=== PATIENT | female | born 1945 | race Caucasian/White ===

== ENCOUNTER 2016-08-16 21:59 | Inpatient (IN) | payer MEDICARE, OTHER ==
[~2016-08-16] VITALS: Ht 165.1 cm; Wt 56.0 kg
[2016-08-16] MEDS ORDERED: IPRATROPIUM BROMIDE 0.5 MG/2.5 ML NEB SOLUTION NEB ONE (22:15)
[2016-08-16] MEDS ORDERED: ALBUTEROL SULFATE 5 MG/ML 20 ML NEB SOLN [BULK] NEB ONE (22:15)
[2016-08-16] MEDS ORDERED: 0.9% SODIUM CHLORIDE 5 ML NEB SOLUTION NEB ONE (22:19)
[2016-08-16] MEDS ORDERED: LEVO50TA11 PO (22:21)
[2016-08-16] MEDS ORDERED: MIRT15TA6 PO (22:21)
[2016-08-16] MEDS ORDERED: OMEP10CA41 PO (22:21)
[2016-08-16] MEDS ORDERED: AMIO200T2 PO (22:21)
[2016-08-16] MEDS ORDERED: METF850T2 PO (22:21)
[2016-08-16] MEDS ORDERED: TRAM50TA4 PO (22:21)
[2016-08-16] MEDS ORDERED: DOCU250C91 PO (22:21)
[2016-08-16] MEDS ORDERED: ASCO500T24 PO (22:21)
[2016-08-16] MEDS ORDERED: VITAD1000 PO (22:21)
[2016-08-16] MEDS ORDERED: ENOX60DI8 SQ (22:21)
[2016-08-16] MEDS ORDERED: LACT1TAB11 PO (22:21)
[2016-08-16] MEDS ORDERED: POTA-9 PO (22:21)
[2016-08-16] MEDS ORDERED: PRAV40TA3 PO (22:21)
[2016-08-16] MEDS ORDERED: GABA-529 PO (22:21)
[2016-08-16] MEDS ORDERED: LEVO250T58 PO (22:21)
[2016-08-16 22:22] LABS: GLUCOSE,POINT OF CARE 166 MG/DL (70-110)
[2016-08-16 22:38] LABS: BASOPHILS % (AUTO) 0.1 % (0.0-2.0); EOSINOPHILS % (AUTO) 0 % (1.0-6.0); HEMATOCRIT 30.4 % (36-46); HEMOGLOBIN 8.9 g/dL (12.0-16.0); LYMPHOCYTES # (AUTO) 0.9 K/uL (1.0-4.8); LYMPHOCYTES % (AUTO) 4.1 % (22.0-44.0); MEAN CORPUSCULAR HEMOGLOBIN 22.1 pg (26.0-34.0); MEAN CORPUSCULAR HGB CONC 29.2 G/dL (31.0-37.0); MEAN CORPUSCULAR VOLUME 76 fL (80-100); MONOCYTES # (AUTO) 1.2 K/uL (0.1-1.0); MONOCYTES % (AUTO) 5.5 % (2.0-9.0); NEUTROPHILS # (AUTO) 20.5 K/uL (1.8-7.7); PLATELET COUNT (AUTO) 556 K/uL (150-450); RED BLOOD CELL COUNT(AUTO) 4.02 MIL/uL (4.00-5.20); RED CELL DISTRIBUTION WIDTH 23.1 % (11.5-14.5); WHITE BLOOD COUNT (AUTO) 22.7 K/uL (4.5-11.0)
[2016-08-16 22:42] LABS: ANION GAP 5 mmol/L (8-16); CALCIUM, TOTAL 8.1 mg/dL (8.8-10.5); CARBON DIOXIDE 32 mmol/L (22-29); CHLORIDE 101 mmol/L (98-107); CREATININE 0.79 mg/dL (0.60-1.30); GLOMERULAR FILTR. RATE CALC > 60 mL/min (>60); POTASSIUM 5.3 mmol/L (3.5-5.1); SODIUM SERUM 138 mmol/L (136-145); UREA NITROGEN, BLOOD 24 mg/dL (7-18)
[2016-08-16 22:44] LABS: INR 1.2 (0.9-1.1); PROTHROMBIN TIME 12.8 SEC (9.4-11.6)
[2016-08-16 22:45] LABS: NEUTROPHILS % (AUTO) 90.3 % (40.0-70.0)
[2016-08-16 23:05] LABS: B-TYPE NATRIURETIC PEPTIDE 571 pg/mL (0-100)
[2016-08-16 23:07] LABS: ALANINE AMINOTRANSFERASE 11 U/L (12-78); ALBUMIN 1.4 g/dL (3.4-5.0); ASPARTATE AMINOTRANSFERASE 29 U/L (15-37); BILIRUBIN,TOTAL 0.4 mg/dL (0.1-1.0); CREATINE KINASE MB 1.4 ng/mL (0-5); CREATINE KINASE, TOTAL 80 U/L (26-192); TOTAL PROTEIN, SERUM 6.8 g/dL (6.4-8.2)
[2016-08-16 23:20] LABS: RBC MORPHOLOGY COMMENT ABNORMAL RBC MORPH
[2016-08-17] MEDS ORDERED: 0.9% SODIUM CHLORIDE 10 ML SYRINGE IVP PRN
[2016-08-17] MEDS ORDERED: ONDANSETRON HCL 4 MG/2 ML VIAL IVP PRN
[2016-08-17] MEDS ORDERED: ACETAMINOPHEN 325 MG TABLET PO PRN
[2016-08-17] MEDS ORDERED: PIPERACILLIN/TAZO 3.375 GM/D5W 50 ML IV ONE (00:15)
[2016-08-17] MEDS ORDERED: VANCOMYCIN HCL 1 GM/D5% WATER 200 ML IV ONE ×2 (00:15→17:00)
[2016-08-17 01:51] VITALS: BP 114/50
[2016-08-17] MEDS ORDERED: SODIUM CHLORIDE 0.9% 500 ML IV ONE (02:07)
[2016-08-17 04:25] VITALS: BP 111/82
[2016-08-17] MEDS ORDERED: DEXTROSE 50%-WATER 25 GM/50 ML SYRINGE IVP PRN (05:45)
[2016-08-17] MEDS ORDERED: TraMADol HCL 50 MG TABLET PO PRN ×2 (06:00→06:15)
[2016-08-17] MEDS ORDERED: LEVOTHYROXINE SODIUM 50 MCG TABLET PO SCH (06:30)
[2016-08-17 07:32] VITALS: BP 103/48
[2016-08-17 07:57] LABS: LACTIC ACID 2.5 mmol/L (0.4-2.0)
[2016-08-17] MEDS ORDERED: MetFORMIN HCL 850 MG TABLET PO SCH (08:00)
[2016-08-17] MEDS ORDERED: MIRTAZAPINE 15 MG TABLET PO SCH (09:00)
[2016-08-17] MEDS ORDERED: GABAPENTIN 100 MG CAPSULE PO SCH (09:00)
[2016-08-17] MEDS ORDERED: LEVOFLOXACIN 250 MG TABLET PO SCH (09:00)
[2016-08-17] MEDS ORDERED: PRAVASTATIN SODIUM 40 MG TABLET PO SCH (09:00)
[2016-08-17] MEDS ORDERED: CHOLECALCIFEROL (VIT D3) 2,000 UNITS TABLET PO SCH (09:00)
[2016-08-17] MEDS ORDERED: POTASSIUM CHLORIDE 10 MEQ ER TABLET PO SCH (09:00)
[2016-08-17] MEDS ORDERED: DOCUSATE SODIUM 250 MG CAPSULE PO SCH (09:00)
[2016-08-17] MEDS ORDERED: OMEPRAZOLE 10 MG CAPSULE PO SCH (09:00)
[2016-08-17] MEDS ORDERED: AMIODARONE HCL 200 MG TABLET PO SCH (09:00)
[2016-08-17 09:10] LABS: ANION GAP 5 mmol/L (8-16); CALCIUM, TOTAL 7.6 mg/dL (8.8-10.5); CARBON DIOXIDE 32 mmol/L (22-29); CHLORIDE 103 mmol/L (98-107); CREATININE 0.82 mg/dL (0.60-1.30); GLOMERULAR FILTR. RATE CALC > 60 mL/min (>60); POTASSIUM 4.9 mmol/L (3.5-5.1); SODIUM SERUM 140 mmol/L (136-145); UREA NITROGEN, BLOOD 28 mg/dL (7-18)
[2016-08-17 09:12] LABS: REFLEX LACTIC ACID? YES YES
[2016-08-17] MEDS ORDERED: SODIUM CL IRRIG SOLN BOTTLE 250 ML IRRIG ONE (10:08)
[2016-08-17] MEDS: DOCUSATE SODIUM 250 MG CAPSULE PEG SCH ×2 (10:25→20:47)
[2016-08-17] MEDS: PIPERACILLIN/TAZO 3.375 GM/D5W 50 ML IV SCH ×3 (10:26→22:36)
[2016-08-17] MEDS: ENOXAPARIN SODIUM 60 MG/0.6 ML PF SYRINGE SQ SCH ×2 (10:26→20:52)
[2016-08-17 11:13] VITALS: BP 111/53
[2016-08-17] MEDS: INSULIN ASPART 100 UNITS/ML SQ PRN ×3 (11:28→20:50)
[2016-08-17 12:28] LABS: APPEARANCE,URINE TURBID (CLEAR); GLUCOSE, URINE (UA) NEGATIVE (NEGATIVE); KETONES,URINE TRACE mg/dL (NEGATIVE); LEUKOCYTE ESTERASE ,URINE LARGE (NEGATIVE); OCCULT BLOOD,URINE SMALL (NEGATIVE); PROTEIN,URINE SEE CONFIRM (NEGATIVE)
[2016-08-17 12:49] LABS: ADD UA MICROSCOPIC YES
[2016-08-17 12:54] LABS: SULFOSALICYLIC ACID,URINE 3+ (Negative)
[2016-08-17 12:55] LABS: SQUAMOUS EPITHELIAL CELL,UR Few /LPF (None Seen); WBC,URINE 26-50 /HPF (0-5)
[2016-08-17 13:57] LABS: GLUCOSE,POINT OF CARE 136 MG/DL (70-110)
[2016-08-17 13:57] LABS: GLUCOSE,POINT OF CARE 140 MG/DL (70-110)
[2016-08-17 16:05] LABS: ALBUMIN 1.2 g/dL (3.4-5.0)
[2016-08-17] MEDS: MetFORMIN HCL 850 MG TABLET PEG SCH (18:16)
[2016-08-17 18:26] LABS: GLUCOSE,POINT OF CARE 135 MG/DL (70-110)
[2016-08-17 19:32] VITALS: BP 106/46
[2016-08-17] MEDS: GABAPENTIN 100 MG CAPSULE PEG SCH (20:47)
[2016-08-17] MEDS: AMIODARONE HCL 200 MG TABLET PEG SCH (20:47)
[2016-08-17 23:05] VITALS: BP 106/48
[2016-08-17 23:47] LABS: GLUCOSE COMMENT 1 Received Meds; GLUCOSE,POINT OF CARE 145 MG/DL (70-110)
[2016-08-18] VITALS (7 sets, daily range): BP systolic 98–138; BP diastolic 45–58
[2016-08-18] MEDS: PIPERACILLIN/TAZO 3.375 GM/D5W 50 ML IV SCH ×4 (03:56→22:51)
[2016-08-18] MEDS: LEVOTHYROXINE SODIUM 50 MCG TABLET PEG SCH (06:02)
[2016-08-18] MEDS: INSULIN ASPART 100 UNITS/ML SQ PRN ×3 (06:11→17:30)
[2016-08-18 06:30] LABS: ANION GAP 2 mmol/L (8-16); CALCIUM, TOTAL 7.4 mg/dL (8.8-10.5); CARBON DIOXIDE 35 mmol/L (22-29); CHLORIDE 104 mmol/L (98-107); CREATININE 0.66 mg/dL (0.60-1.30); GLOMERULAR FILTR. RATE CALC > 60 mL/min (>60); POTASSIUM 3.7 mmol/L (3.5-5.1); SODIUM SERUM 141 mmol/L (136-145); UREA NITROGEN, BLOOD 22 mg/dL (7-18)
[2016-08-18] MEDS: VANCOMYCIN HCL 750 MG in DEXTROSE 5%-WATER 150 ML IV SCH ×2 (08:23→21:10)
[2016-08-18] MEDS: GABAPENTIN 100 MG CAPSULE PEG SCH ×2 (08:49→21:45)
[2016-08-18] MEDS: DOCUSATE SODIUM 250 MG CAPSULE PEG SCH ×2 (08:49→21:09)
[2016-08-18] MEDS: LEVOFLOXACIN 500 MG TABLET PEG SCH (08:49)
[2016-08-18] MEDS: MetFORMIN HCL 850 MG TABLET PEG SCH ×2 (08:49→17:31)
[2016-08-18] MEDS: POTASSIUM CHLORIDE 10% 40 MEQ/30 ML LIQUID UDCUP PEG SCH (08:49)
[2016-08-18] MEDS: MULTIVITAMINS WITH MINERALS, THERAPEUTIC 15 ML UDCUP PEG SCH (08:49)
[2016-08-18] MEDS: CHOLECALCIFEROL (VIT D3) 2,000 UNITS TABLET PEG SCH (08:50)
[2016-08-18] MEDS: PRAVASTATIN SODIUM 40 MG TABLET PEG SCH (08:50)
[2016-08-18] MEDS: LANSOPRAZOLE 30 MG SOLUBLE TABLET PEG SCH (08:50)
[2016-08-18] MEDS: MIRTAZAPINE 15 MG TABLET PEG SCH (08:50)
[2016-08-18] MEDS: ENOXAPARIN SODIUM 60 MG/0.6 ML PF SYRINGE SQ SCH ×2 (08:50→21:09)
[2016-08-18] MEDS: AMIODARONE HCL 200 MG TABLET PEG SCH ×2 (08:51→21:09)
[2016-08-18] MEDS ORDERED: OMEPRAZOLE 20 MG CAPSULE PO SCH (09:00)
[2016-08-18] MEDS: ACETAMINOPHEN 650 MG/20.3 ML SOLUTION UDCUP PEG PRN (11:43)
[2016-08-18 17:52] LABS: GLUCOSE COMMENT 1 Received Meds; GLUCOSE,POINT OF CARE 158 MG/DL (70-110)
[2016-08-18 17:52] LABS: GLUCOSE COMMENT 1 Received Meds; GLUCOSE,POINT OF CARE 143 MG/DL (70-110)
[2016-08-18 17:52] LABS: GLUCOSE,POINT OF CARE 127 MG/DL (70-110)
[2016-08-18] MEDS ORDERED: SODIUM CHLORIDE 0.9% 500 ML IV ONE (20:48)
[2016-08-18 22:22] LABS: GLUCOSE,POINT OF CARE 107 MG/DL (70-110)
[2016-08-19] MEDS: PIPERACILLIN/TAZO 3.375 GM/D5W 50 ML IV SCH ×4 (03:01→21:51)
[2016-08-19] MEDS: TraMADol HCL 50 MG TABLET PEG PRN ×3 (04:00→21:42)
[2016-08-19] MEDS: ACETAMINOPHEN 650 MG/20.3 ML SOLUTION UDCUP PEG PRN (04:56)
[2016-08-19 04:58] VITALS: BP 101/56
[2016-08-19 05:52] LABS: GLUCOSE COMMENT 1 Received Meds; GLUCOSE,POINT OF CARE 169 MG/DL (70-110)
[2016-08-19] MEDS: LEVOTHYROXINE SODIUM 50 MCG TABLET PEG SCH (05:52)
[2016-08-19] MEDS: INSULIN ASPART 100 UNITS/ML SQ PRN ×2 (05:55→21:03)
[2016-08-19 08:01] VITALS: BP 110/55
[2016-08-19 08:10] LABS: ANION GAP 0 mmol/L (8-16); CALCIUM, TOTAL 7.7 mg/dL (8.8-10.5); CARBON DIOXIDE 37 mmol/L (22-29); CHLORIDE 103 mmol/L (98-107); CREATININE 0.68 mg/dL (0.60-1.30); GLOMERULAR FILTR. RATE CALC > 60 mL/min (>60); POTASSIUM 3.3 mmol/L (3.5-5.1); SODIUM SERUM 140 mmol/L (136-145); UREA NITROGEN, BLOOD 18 mg/dL (7-18)
[2016-08-19] MEDS: VANCOMYCIN HCL 750 MG in DEXTROSE 5%-WATER 150 ML IV SCH ×2 (08:43→19:46)
[2016-08-19] MEDS: GABAPENTIN 100 MG CAPSULE PEG SCH ×2 (08:43→21:03)
[2016-08-19] MEDS: DOCUSATE SODIUM 250 MG CAPSULE PEG SCH ×2 (08:43→21:07)
[2016-08-19] MEDS: LEVOFLOXACIN 500 MG TABLET PEG SCH (08:43)
[2016-08-19] MEDS: POTASSIUM CHLORIDE 10% 40 MEQ/30 ML LIQUID UDCUP PEG SCH (08:43)
[2016-08-19] MEDS: CHOLECALCIFEROL (VIT D3) 2,000 UNITS TABLET PEG SCH (08:44)
[2016-08-19] MEDS: ENOXAPARIN SODIUM 60 MG/0.6 ML PF SYRINGE SQ SCH ×2 (08:44→21:03)
[2016-08-19] MEDS: MetFORMIN HCL 850 MG TABLET PEG SCH ×2 (08:44→17:51)
[2016-08-19] MEDS: AMIODARONE HCL 200 MG TABLET PEG SCH ×2 (08:44→21:03)
[2016-08-19] MEDS: MULTIVITAMINS WITH MINERALS, THERAPEUTIC 15 ML UDCUP PEG SCH (08:44)
[2016-08-19] MEDS: MIRTAZAPINE 15 MG TABLET PEG SCH (08:44)
[2016-08-19] MEDS: LANSOPRAZOLE 30 MG SOLUBLE TABLET PEG SCH (08:45)
[2016-08-19] MEDS: PRAVASTATIN SODIUM 40 MG TABLET PEG SCH (08:51)
[2016-08-19 12:33] VITALS: BP 109/60
[2016-08-19 15:22] VITALS: BP 118/62
[2016-08-19 17:37] LABS: GLUCOSE,POINT OF CARE 120 MG/DL (70-110)
[2016-08-19 20:45] VITALS: BP 119/59
[2016-08-19 23:51] LABS: GLUCOSE COMMENT 1 Received Meds; GLUCOSE,POINT OF CARE 143 MG/DL (70-110)
[2016-08-20] VITALS (7 sets, daily range): BP systolic 100–121; BP diastolic 49–56
[2016-08-20] MEDS: PIPERACILLIN/TAZO 3.375 GM/D5W 50 ML IV SCH ×4 (04:35→22:55)
[2016-08-20] MEDS: TraMADol HCL 50 MG TABLET PEG PRN (04:38)
[2016-08-20] MEDS: LEVOTHYROXINE SODIUM 50 MCG TABLET PEG SCH (06:21)
[2016-08-20 06:59] LABS: GLUCOSE,POINT OF CARE 122 MG/DL (70-110)
[2016-08-20 08:40] LABS: BASOPHILS # (AUTO) 0.05 K/uL (0.00-0.20); BASOPHILS % (AUTO) 0.5 % (0.0-2.0); EOSINOPHILS # (AUTO) 0.17 K/uL (0.00-0.70); EOSINOPHILS % (AUTO) 1.73 % (1.0-6.0); HEMATOCRIT 23.2 % (36-46); HEMOGLOBIN 7.1 g/dL (12.0-16.0); LYMPHOCYTES # (AUTO) 1.9 K/uL (1.0-4.8); LYMPHOCYTES % (AUTO) 18.8 % (22.0-44.0); MEAN CORPUSCULAR HEMOGLOBIN 22.5 pg (26.0-34.0); MEAN CORPUSCULAR HGB CONC 30.5 G/dL (31.0-37.0); MEAN CORPUSCULAR VOLUME 74 fL (80-100); MONOCYTES # (AUTO) 0.8 K/uL (0.1-1.0); MONOCYTES % (AUTO) 7.7 % (2.0-9.0); NEUTROPHILS # (AUTO) 7.2 K/uL (1.8-7.7); NEUTROPHILS % (AUTO) 71.3 % (40.0-70.0); PLATELET COUNT (AUTO) 459 K/uL (150-450); RED BLOOD CELL COUNT(AUTO) 3.15 MIL/uL (4.00-5.20); RED CELL DISTRIBUTION WIDTH 23.4 % (11.5-14.5); WHITE BLOOD COUNT (AUTO) 10.1 K/uL (4.5-11.0)
[2016-08-20 08:50] LABS: RBC MORPHOLOGY COMMENT ABNORMAL RBC MORPH
[2016-08-20 08:54] LABS: ALANINE AMINOTRANSFERASE 13 U/L (12-78); ANION GAP 4 mmol/L (8-16); ASPARTATE AMINOTRANSFERASE 20 U/L (15-37); BILIRUBIN,TOTAL 0.1 mg/dL (0.1-1.0); CALCIUM, TOTAL 7.6 mg/dL (8.8-10.5); CARBON DIOXIDE 34 mmol/L (22-29); CHLORIDE 104 mmol/L (98-107); CREATININE 0.56 mg/dL (0.60-1.30); GLOMERULAR FILTR. RATE CALC > 60 mL/min (>60); POTASSIUM 3.7 mmol/L (3.5-5.1); SODIUM SERUM 142 mmol/L (136-145); TOTAL PROTEIN, SERUM 5.6 g/dL (6.4-8.2); UREA NITROGEN, BLOOD 13 mg/dL (7-18)
[2016-08-20] MEDS: VANCOMYCIN HCL 750 MG in DEXTROSE 5%-WATER 150 ML IV SCH ×2 (09:00→19:48)
[2016-08-20] MEDS: MULTIVITAMINS WITH MINERALS, THERAPEUTIC 15 ML UDCUP PEG SCH (09:02)
[2016-08-20] MEDS: GABAPENTIN 100 MG CAPSULE PEG SCH ×2 (09:02→20:13)
[2016-08-20] MEDS: MIRTAZAPINE 15 MG TABLET PEG SCH (09:02)
[2016-08-20] MEDS: LANSOPRAZOLE 30 MG SOLUBLE TABLET PEG SCH (09:02)
[2016-08-20] MEDS: CHOLECALCIFEROL (VIT D3) 2,000 UNITS TABLET PEG SCH (09:02)
[2016-08-20] MEDS: AMIODARONE HCL 200 MG TABLET PEG SCH ×2 (09:02→20:13)
[2016-08-20] MEDS: PRAVASTATIN SODIUM 40 MG TABLET PEG SCH (09:02)
[2016-08-20] MEDS: MetFORMIN HCL 850 MG TABLET PEG SCH ×2 (09:02→16:43)
[2016-08-20] MEDS: ENOXAPARIN SODIUM 60 MG/0.6 ML PF SYRINGE SQ SCH ×2 (09:03→20:13)
[2016-08-20] MEDS: POTASSIUM CHLORIDE 10% 40 MEQ/30 ML LIQUID UDCUP PEG SCH (09:03)
[2016-08-20] MEDS: ACETAMINOPHEN 650 MG/20.3 ML SOLUTION UDCUP PEG PRN (09:05)
[2016-08-20 09:55] LABS: ERYTHROCYTE SEDIMENTATION RATE 92 MM/HR (0-20)
[2016-08-20] MEDS: DOCUSATE SODIUM 100 MG CAPSULE PEG SCH ×2 (10:25→20:13)
[2016-08-20] MEDS: INSULIN ASPART 100 UNITS/ML SQ PRN ×2 (12:01→16:50)
[2016-08-20] MEDS ORDERED: LEVO500 PO (13:05)
[2016-08-20] MEDS ORDERED: KDUR20 PO (13:05)
[2016-08-20] MEDS ORDERED: OMEP20 PO (13:05)
[2016-08-20] MEDS ORDERED: INFLUENZA VIRUS VACCINE QVS 2016-17 (3YR+)/PF 60 MCG/0.5 ML SYRINGE IM ONE (13:15)
[2016-08-20] MEDS ORDERED: SODIUM CHLORIDE 0.9% 500 ML IV ONE (13:52)
[2016-08-20 14:38] LABS: APPEARANCE,URINE CLEAR (CLEAR); GLUCOSE, URINE (UA) NEGATIVE (NEGATIVE); KETONES,URINE NEGATIVE (NEGATIVE); LEUKOCYTE ESTERASE ,URINE TRACE (NEGATIVE); OCCULT BLOOD,URINE NEGATIVE (NEGATIVE); PH,URINE 7.5 (5.0-8.0); PROTEIN,URINE NEGATIVE (NEGATIVE)
[2016-08-20 14:46] LABS: RBC,URINE None Seen /HPF (0-2); SQUAMOUS EPITHELIAL CELL,UR None Seen /LPF (None Seen); WBC,URINE 0-2 /HPF (0-5)
[2016-08-21 00:12] LABS: GLUCOSE,POINT OF CARE 119 MG/DL (70-110)
[2016-08-21 00:12] LABS: GLUCOSE,POINT OF CARE 131 MG/DL (70-110)
[2016-08-21 00:12] LABS: GLUCOSE COMMENT 1 Received Meds; GLUCOSE,POINT OF CARE 135 MG/DL (70-110)
[2016-08-21] MEDS: ACETAMINOPHEN 650 MG/20.3 ML SOLUTION UDCUP PEG PRN ×2 (00:37→13:29)
[2016-08-21] MEDS: PIPERACILLIN/TAZO 3.375 GM/D5W 50 ML IV SCH ×5 (04:37→23:57)
[2016-08-21 05:20] VITALS: BP 98/60
[2016-08-21] MEDS: LEVOTHYROXINE SODIUM 50 MCG TABLET PEG SCH (06:00)
[2016-08-21 07:01] LABS: GLUCOSE,POINT OF CARE 113 MG/DL (70-110)
[2016-08-21 07:02] LABS: ANION GAP 6 mmol/L (8-16); CALCIUM, TOTAL 7.6 mg/dL (8.8-10.5); CARBON DIOXIDE 33 mmol/L (22-29); CHLORIDE 107 mmol/L (98-107); CREATININE 0.61 mg/dL (0.60-1.30); GLOMERULAR FILTR. RATE CALC > 60 mL/min (>60); POTASSIUM 3.6 mmol/L (3.5-5.1); SODIUM SERUM 146 mmol/L (136-145); UREA NITROGEN, BLOOD 14 mg/dL (7-18)
[2016-08-21 08:12] VITALS: BP 97/57
[2016-08-21] MEDS: VANCOMYCIN HCL 750 MG in DEXTROSE 5%-WATER 150 ML IV SCH (08:32)
[2016-08-21] MEDS: ENOXAPARIN SODIUM 60 MG/0.6 ML PF SYRINGE SQ SCH ×2 (08:33→20:36)
[2016-08-21] MEDS: MULTIVITAMINS WITH MINERALS, THERAPEUTIC 15 ML UDCUP PEG SCH (08:34)
[2016-08-21] MEDS: GABAPENTIN 100 MG CAPSULE PEG SCH ×2 (08:34→20:35)
[2016-08-21] MEDS: DOCUSATE SODIUM 100 MG CAPSULE PEG SCH ×2 (08:34→20:35)
[2016-08-21] MEDS: POTASSIUM CHLORIDE 10% 40 MEQ/30 ML LIQUID UDCUP PEG SCH (08:34)
[2016-08-21] MEDS: LANSOPRAZOLE 30 MG SOLUBLE TABLET PEG SCH (08:34)
[2016-08-21] MEDS: MetFORMIN HCL 850 MG TABLET PEG SCH ×2 (08:34→17:10)
[2016-08-21] MEDS: AMIODARONE HCL 200 MG TABLET PEG SCH ×2 (08:35→20:35)
[2016-08-21] MEDS: PRAVASTATIN SODIUM 40 MG TABLET PEG SCH (08:35)
[2016-08-21] MEDS: CHOLECALCIFEROL (VIT D3) 2,000 UNITS TABLET PEG SCH (08:37)
[2016-08-21] MEDS: MIRTAZAPINE 15 MG TABLET PEG SCH (08:44)
[2016-08-21] MEDS: INSULIN ASPART 100 UNITS/ML SQ PRN ×2 (11:24→18:57)
[2016-08-21 11:33] VITALS: BP 120/66
[2016-08-21 12:31] LABS: GLUCOSE,POINT OF CARE 137 MG/DL (70-110)
[2016-08-21 15:32] VITALS: BP 118/54
[2016-08-21 20:11] LABS: GLUCOSE,POINT OF CARE 130 MG/DL (70-110)
[2016-08-21 20:12] VITALS: BP 122/48
[2016-08-21] MEDS: VANCOMYCIN HCL 500 MG in DEXTROSE 5%-WATER 100 ML IV SCH (20:32)
[2016-08-21] MEDS ORDERED: SODIUM CHLORIDE 0.9% 250 ML IV ONE (20:49)
[2016-08-21 23:15] VITALS: BP 116/52
[2016-08-22] MEDS: INSULIN ASPART 100 UNITS/ML SQ PRN ×2 (00:01→07:02)
[2016-08-22] MEDS ORDERED: SODIUM CL IRRIG SOLN BOTTLE 250 ML IRRIG ONE (00:18)
[2016-08-22 03:30] VITALS: BP 114/50
[2016-08-22 04:17] LABS: GLUCOSE,POINT OF CARE 103 MG/DL (70-110)
[2016-08-22] MEDS: PIPERACILLIN/TAZO 3.375 GM/D5W 50 ML IV SCH ×4 (06:45→21:24)
[2016-08-22] MEDS: LEVOTHYROXINE SODIUM 50 MCG TABLET PEG SCH (06:57)
[2016-08-22 07:10] LABS: ANION GAP 3 mmol/L (8-16); CALCIUM, TOTAL 7.7 mg/dL (8.8-10.5); CARBON DIOXIDE 32 mmol/L (22-29); CHLORIDE 106 mmol/L (98-107); GLOMERULAR FILTR. RATE CALC > 60 mL/min (>60); POTASSIUM 3.6 mmol/L (3.5-5.1); SODIUM SERUM 141 mmol/L (136-145); UREA NITROGEN, BLOOD 13 mg/dL (7-18)
[2016-08-22 07:12] LABS: GLUCOSE,POINT OF CARE 112 MG/DL (70-110)
[2016-08-22 07:22] VITALS: BP 121/63
[2016-08-22] MEDS: GABAPENTIN 100 MG CAPSULE PEG SCH ×2 (08:00→21:23)
[2016-08-22] MEDS: VANCOMYCIN HCL 500 MG in DEXTROSE 5%-WATER 100 ML IV SCH ×2 (08:00→20:41)
[2016-08-22] MEDS: MULTIVITAMINS WITH MINERALS, THERAPEUTIC 15 ML UDCUP PEG SCH (08:00)
[2016-08-22] MEDS: PRAVASTATIN SODIUM 40 MG TABLET PEG SCH (08:00)
[2016-08-22] MEDS: MetFORMIN HCL 850 MG TABLET PEG SCH ×2 (08:00→18:09)
[2016-08-22] MEDS: POTASSIUM CHLORIDE 10% 40 MEQ/30 ML LIQUID UDCUP PEG SCH (08:00)
[2016-08-22] MEDS: CHOLECALCIFEROL (VIT D3) 2,000 UNITS TABLET PEG SCH (08:01)
[2016-08-22] MEDS: ENOXAPARIN SODIUM 60 MG/0.6 ML PF SYRINGE SQ SCH ×2 (08:01→21:23)
[2016-08-22] MEDS: MIRTAZAPINE 15 MG TABLET PEG SCH (08:01)
[2016-08-22] MEDS: LANSOPRAZOLE 30 MG SOLUBLE TABLET PEG SCH (08:01)
[2016-08-22] MEDS: AMIODARONE HCL 200 MG TABLET PEG SCH ×2 (08:04→21:23)
[2016-08-22] MEDS: DOCUSATE SODIUM 100 MG CAPSULE PEG SCH ×3 (08:09→21:23)
[2016-08-22] MEDS: TraMADol HCL 50 MG TABLET PEG PRN (10:00)
[2016-08-22 11:40] VITALS: BP 125/66
[2016-08-22 12:30] LABS: ORGANISM ID Not indicated.
[2016-08-22 15:47] VITALS: BP 117/70
[2016-08-22 18:12] LABS: GLUCOSE COMMENT 1 Received Meds; GLUCOSE,POINT OF CARE 126 MG/DL (70-110)
[2016-08-22 20:00] LABS: HEMATOCRIT 26.2 % (36-46); HEMOGLOBIN 8.1 g/dL (12.0-16.0); MEAN CORPUSCULAR HEMOGLOBIN 22.8 pg (26.0-34.0); MEAN CORPUSCULAR VOLUME 74 fL (80-100); PLATELET COUNT (AUTO) 635 K/uL (150-450); RED BLOOD CELL COUNT(AUTO) 3.55 MIL/uL (4.00-5.20); WHITE BLOOD COUNT (AUTO) 12.1 K/uL (4.5-11.0)
[2016-08-22 20:19] VITALS: BP 117/54
[2016-08-22] MEDS: ACETAMINOPHEN 650 MG/20.3 ML SOLUTION UDCUP PEG PRN (21:23)
[2016-08-22 22:03] LABS: BAND NEUTROPHILS % (MANUAL) 10 % (1-5); EOSINOPHILS % (MANUAL) 3 % (1-6); LYMPHOCYTES % (MANUAL) 24 % (22-44); METAMYELOCYTES % 1 % (0-0); MYELOCYTES % 4 % (0-0); PROMYELOCYTES % 1 (0-0); TOTAL CELLS COUNTED 100
[2016-08-22 22:04] LABS: RBC MORPHOLOGY COMMENT ABNORMAL R
[2016-08-22] MEDS ORDERED: SODIUM CHLORIDE 0.9% 250 ML IV ONE (23:31)
[2016-08-23] VITALS (7 sets, daily range): BP systolic 102–128; BP diastolic 51–69
[2016-08-23] MEDS: PIPERACILLIN/TAZO 3.375 GM/D5W 50 ML IV SCH ×4 (04:32→22:19)
[2016-08-23] MEDS: LEVOTHYROXINE SODIUM 50 MCG TABLET PEG SCH (06:20)
[2016-08-23 06:31] LABS: GLUCOSE COMMENT 1 Received Meds; GLUCOSE,POINT OF CARE 127 MG/DL (70-110)
[2016-08-23 08:13] LABS: ANION GAP 6 mmol/L (8-16); CALCIUM, TOTAL 7.6 mg/dL (8.8-10.5); CARBON DIOXIDE 30 mmol/L (22-29); CHLORIDE 107 mmol/L (98-107); CREATININE 0.57 mg/dL (0.60-1.30); GLOMERULAR FILTR. RATE CALC > 60 mL/min (>60); POTASSIUM 3.5 mmol/L (3.5-5.1); SODIUM SERUM 143 mmol/L (136-145); UREA NITROGEN, BLOOD 15 mg/dL (7-18)
[2016-08-23] MEDS: CHOLECALCIFEROL (VIT D3) 2,000 UNITS TABLET PEG SCH (08:42)
[2016-08-23] MEDS: MetFORMIN HCL 850 MG TABLET PEG SCH ×2 (08:42→17:59)
[2016-08-23] MEDS: ENOXAPARIN SODIUM 60 MG/0.6 ML PF SYRINGE SQ SCH ×2 (08:43→20:38)
[2016-08-23] MEDS: LANSOPRAZOLE 30 MG SOLUBLE TABLET PEG SCH (08:43)
[2016-08-23] MEDS: GABAPENTIN 100 MG CAPSULE PEG SCH ×2 (08:43→20:38)
[2016-08-23] MEDS: MULTIVITAMINS WITH MINERALS, THERAPEUTIC 15 ML UDCUP PEG SCH (08:43)
[2016-08-23] MEDS: POTASSIUM CHLORIDE 10% 40 MEQ/30 ML LIQUID UDCUP PEG SCH (08:43)
[2016-08-23] MEDS: AMIODARONE HCL 200 MG TABLET PEG SCH ×2 (08:43→20:38)
[2016-08-23] MEDS: PRAVASTATIN SODIUM 40 MG TABLET PEG SCH (08:43)
[2016-08-23] MEDS: MIRTAZAPINE 15 MG TABLET PEG SCH (08:48)
[2016-08-23] MEDS: DOCUSATE SODIUM 100 MG CAPSULE PEG SCH ×2 (09:00→20:51)
[2016-08-23] MEDS ORDERED: VANCOMYCIN HCL 500 MG in DEXTROSE 5%-WATER 100 ML IV ONE (17:00)
[2016-08-23 17:58] LABS: GLUCOSE COMMENT 1 Received Meds; GLUCOSE,POINT OF CARE 143 MG/DL (70-110)
[2016-08-23] MEDS: INSULIN ASPART 100 UNITS/ML SQ PRN ×2 (18:00→20:41)
[2016-08-23] MEDS: ACETAMINOPHEN 650 MG/20.3 ML SOLUTION UDCUP PEG PRN (20:38)
[2016-08-24 04:57] LABS: GLUCOSE COMMENT 1 Received Meds; GLUCOSE,POINT OF CARE 142 MG/DL (70-110)
[2016-08-24 05:32] VITALS: BP 119/61
[2016-08-24] MEDS: LEVOTHYROXINE SODIUM 50 MCG TABLET PEG SCH (06:17)
[2016-08-24] MEDS: INSULIN ASPART 100 UNITS/ML SQ PRN ×3 (06:19→20:54)
[2016-08-24 06:59] LABS: ANION GAP 7 mmol/L (8-16); CARBON DIOXIDE 29 mmol/L (22-29); CHLORIDE 108 mmol/L (98-107); GLOMERULAR FILTR. RATE CALC > 60 mL/min (>60); POTASSIUM 3.5 mmol/L (3.5-5.1); SODIUM SERUM 144 mmol/L (136-145); UREA NITROGEN, BLOOD 16 mg/dL (7-18)
[2016-08-24] MEDS: ENOXAPARIN SODIUM 60 MG/0.6 ML PF SYRINGE SQ SCH ×2 (07:34→21:39)
[2016-08-24] MEDS: MULTIVITAMINS WITH MINERALS, THERAPEUTIC 15 ML UDCUP PEG SCH (07:35)
[2016-08-24] MEDS: MetFORMIN HCL 850 MG TABLET PEG SCH ×2 (07:35→17:41)
[2016-08-24] MEDS: MIRTAZAPINE 15 MG TABLET PEG SCH (07:35)
[2016-08-24] MEDS: DOCUSATE SODIUM 100 MG CAPSULE PEG SCH ×2 (07:35→19:54)
[2016-08-24] MEDS: CHOLECALCIFEROL (VIT D3) 2,000 UNITS TABLET PEG SCH (07:35)
[2016-08-24] MEDS: AMIODARONE HCL 200 MG TABLET PEG SCH ×2 (07:35→19:54)
[2016-08-24] MEDS: GABAPENTIN 100 MG CAPSULE PEG SCH ×2 (07:35→19:54)
[2016-08-24] MEDS: PRAVASTATIN SODIUM 40 MG TABLET PEG SCH (07:35)
[2016-08-24] MEDS: POTASSIUM CHLORIDE 10% 40 MEQ/30 ML LIQUID UDCUP PEG SCH (07:35)
[2016-08-24] MEDS: LANSOPRAZOLE 30 MG SOLUBLE TABLET PEG SCH (07:35)
[2016-08-24 07:48] VITALS: BP 106/57
[2016-08-24] MEDS ORDERED: VANCOMYCIN HCL 750 MG in DEXTROSE 5%-WATER 150 ML IV SCH (08:00)
[2016-08-24 10:36] LABS: GLUCOSE COMMENT 1 Received Meds; GLUCOSE,POINT OF CARE 143 MG/DL (70-110)
[2016-08-24 12:44] VITALS: BP 111/59
[2016-08-24 16:08] VITALS: BP 104/55
[2016-08-24] MEDS: TraMADol HCL 50 MG TABLET PEG PRN (17:42)
[2016-08-24 17:48] LABS: GLUCOSE COMMENT 1 Received Meds; GLUCOSE,POINT OF CARE 146 MG/DL (70-110)
[2016-08-24 19:28] VITALS: BP 111/55
[2016-08-24] MEDS: ACETAMINOPHEN 650 MG/20.3 ML SOLUTION UDCUP PEG PRN (19:54)
[2016-08-24 22:46] LABS: GLUCOSE COMMENT 1 Received Meds; GLUCOSE,POINT OF CARE 160 MG/DL (70-110)
[2016-08-24 23:19] VITALS: BP 109/54
[2016-08-25] MEDS: TraMADol HCL 50 MG TABLET PEG PRN ×3 (01:35→13:23)
[2016-08-25 04:28] VITALS: BP 145/57
[2016-08-25] MEDS: LEVOTHYROXINE SODIUM 50 MCG TABLET PEG SCH (05:27)
[2016-08-25] MEDS: INSULIN ASPART 100 UNITS/ML SQ PRN ×2 (05:36→17:25)
[2016-08-25 06:27] LABS: GLUCOSE COMMENT 1 Received Meds; GLUCOSE,POINT OF CARE 153 MG/DL (70-110)
[2016-08-25 07:46] VITALS: BP 122/60
[2016-08-25 08:27] LABS: ANION GAP 6 mmol/L (8-16); CALCIUM, TOTAL 7.9 mg/dL (8.8-10.5); CARBON DIOXIDE 30 mmol/L (22-29); CHLORIDE 106 mmol/L (98-107); CREATININE 0.51 mg/dL (0.60-1.30); GLOMERULAR FILTR. RATE CALC > 60 mL/min (>60); POTASSIUM 4.3 mmol/L (3.5-5.1); SODIUM SERUM 142 mmol/L (136-145); UREA NITROGEN, BLOOD 23 mg/dL (7-18)
[2016-08-25] MEDS: ENOXAPARIN SODIUM 60 MG/0.6 ML PF SYRINGE SQ SCH ×2 (08:58→20:13)
[2016-08-25] MEDS: POTASSIUM CHLORIDE 10% 40 MEQ/30 ML LIQUID UDCUP PEG SCH (08:59)
[2016-08-25] MEDS: LANSOPRAZOLE 30 MG SOLUBLE TABLET PEG SCH (09:00)
[2016-08-25] MEDS: CHOLECALCIFEROL (VIT D3) 2,000 UNITS TABLET PEG SCH (09:00)
[2016-08-25] MEDS: PRAVASTATIN SODIUM 40 MG TABLET PEG SCH (09:00)
[2016-08-25] MEDS: MetFORMIN HCL 850 MG TABLET PEG SCH ×2 (09:00→17:24)
[2016-08-25] MEDS: MULTIVITAMINS WITH MINERALS, THERAPEUTIC 15 ML UDCUP PEG SCH (09:00)
[2016-08-25] MEDS: GABAPENTIN 100 MG CAPSULE PEG SCH ×2 (09:00→20:13)
[2016-08-25] MEDS: DOCUSATE SODIUM 100 MG CAPSULE PEG SCH ×2 (09:00→20:13)
[2016-08-25] MEDS: AMIODARONE HCL 200 MG TABLET PEG SCH ×2 (09:00→20:13)
[2016-08-25] MEDS: MIRTAZAPINE 15 MG TABLET PEG SCH (09:00)
[2016-08-25 11:30] VITALS: BP 139/65
[2016-08-25 12:07] LABS: GLUCOSE,POINT OF CARE 113 MG/DL (70-110)
[2016-08-25 15:41] VITALS: BP 124/73
[2016-08-25 17:27] LABS: GLUCOSE,POINT OF CARE 148 MG/DL (70-110)
[2016-08-25] MEDS: ACETAMINOPHEN 650 MG/20.3 ML SOLUTION UDCUP PEG PRN ×2 (17:53→20:13)
[2016-08-25 19:27] VITALS: BP 101/43
[2016-08-25 23:11] VITALS: BP 109/45
[2016-08-25 23:46] LABS: GLUCOSE,POINT OF CARE 109 MG/DL (70-110)
[2016-08-26] MEDS: ACETAMINOPHEN 650 MG/20.3 ML SOLUTION UDCUP PEG PRN ×2 (00:05→20:38)
[2016-08-26 05:05] VITALS: BP 121/54
[2016-08-26 07:01] LABS: GLUCOSE,POINT OF CARE 135 MG/DL (70-110)
[2016-08-26 07:41] VITALS: BP 121/53
[2016-08-26] MEDS: GABAPENTIN 100 MG CAPSULE PEG SCH ×2 (08:44→20:38)
[2016-08-26] MEDS: MetFORMIN HCL 850 MG TABLET PEG SCH ×2 (08:44→17:27)
[2016-08-26] MEDS: MIRTAZAPINE 15 MG TABLET PEG SCH (08:44)
[2016-08-26] MEDS: AMIODARONE HCL 200 MG TABLET PEG SCH ×2 (08:44→20:38)
[2016-08-26] MEDS: LEVOTHYROXINE SODIUM 50 MCG TABLET PEG SCH (08:44)
[2016-08-26] MEDS: MULTIVITAMINS WITH MINERALS, THERAPEUTIC 15 ML UDCUP PEG SCH (08:44)
[2016-08-26] MEDS: LANSOPRAZOLE 30 MG SOLUBLE TABLET PEG SCH (08:44)
[2016-08-26] MEDS: DOCUSATE SODIUM 100 MG CAPSULE PEG SCH ×2 (08:44→20:58)
[2016-08-26] MEDS: POTASSIUM CHLORIDE 10% 40 MEQ/30 ML LIQUID UDCUP PEG SCH (08:44)
[2016-08-26] MEDS: CHOLECALCIFEROL (VIT D3) 2,000 UNITS TABLET PEG SCH (08:44)
[2016-08-26] MEDS: ENOXAPARIN SODIUM 60 MG/0.6 ML PF SYRINGE SQ SCH ×2 (08:45→20:38)
[2016-08-26] MEDS: PRAVASTATIN SODIUM 40 MG TABLET PEG SCH (09:01)
[2016-08-26] MEDS: TraMADol HCL 50 MG TABLET PEG PRN ×2 (10:21→17:27)
[2016-08-26 11:21] LABS: GLUCOSE,POINT OF CARE 129 MG/DL (70-110)
[2016-08-26 11:34] VITALS: BP 128/52
[2016-08-26 15:37] VITALS: BP 130/56
[2016-08-26 20:11] VITALS: BP 120/60
[2016-08-26 21:02] LABS: GLUCOSE,POINT OF CARE 119 MG/DL (70-110)
[2016-08-26 23:33] VITALS: BP 111/57
[2016-08-27 00:06] LABS: GLUCOSE,POINT OF CARE 122 MG/DL (70-110)
[2016-08-27 04:59] VITALS: BP 124/56
[2016-08-27] MEDS: LEVOTHYROXINE SODIUM 50 MCG TABLET PEG SCH (06:22)
[2016-08-27 08:07] VITALS: BP 105/56
[2016-08-27] MEDS: TraMADol HCL 50 MG TABLET PEG PRN ×3 (08:16→23:15)
[2016-08-27] MEDS: PRAVASTATIN SODIUM 40 MG TABLET PEG SCH (08:16)
[2016-08-27] MEDS: POTASSIUM CHLORIDE 10% 40 MEQ/30 ML LIQUID UDCUP PEG SCH (08:17)
[2016-08-27] MEDS: MIRTAZAPINE 15 MG TABLET PEG SCH (08:17)
[2016-08-27] MEDS: DOCUSATE SODIUM 100 MG CAPSULE PEG SCH ×2 (08:17→20:20)
[2016-08-27] MEDS: ENOXAPARIN SODIUM 60 MG/0.6 ML PF SYRINGE SQ SCH ×2 (08:17→20:20)
[2016-08-27] MEDS: MetFORMIN HCL 850 MG TABLET PEG SCH ×2 (08:17→16:52)
[2016-08-27] MEDS: CHOLECALCIFEROL (VIT D3) 2,000 UNITS TABLET PEG SCH (08:17)
[2016-08-27] MEDS: GABAPENTIN 100 MG CAPSULE PEG SCH ×2 (08:17→20:20)
[2016-08-27] MEDS: AMIODARONE HCL 200 MG TABLET PEG SCH ×2 (08:17→20:20)
[2016-08-27] MEDS: MULTIVITAMINS WITH MINERALS, THERAPEUTIC 15 ML UDCUP PEG SCH (08:18)
[2016-08-27] MEDS: LANSOPRAZOLE 30 MG SOLUBLE TABLET PEG SCH (08:18)
[2016-08-27 12:07] LABS: GLUCOSE,POINT OF CARE 106 MG/DL (70-110)
[2016-08-27 15:23] VITALS: BP 110/55
[2016-08-27 18:27] LABS: GLUCOSE,POINT OF CARE 130 MG/DL (70-110)
[2016-08-27 19:57] VITALS: BP 132/63
[2016-08-28 00:13] VITALS: BP 116/78
[2016-08-28 05:00] VITALS: BP 113/61
[2016-08-28] MEDS: LEVOTHYROXINE SODIUM 50 MCG TABLET PEG SCH (05:16)
[2016-08-28 05:57] LABS: GLUCOSE,POINT OF CARE 123 MG/DL (70-110)
[2016-08-28] MEDS: GABAPENTIN 100 MG CAPSULE PEG SCH (08:32)
[2016-08-28] MEDS: AMIODARONE HCL 200 MG TABLET PEG SCH (08:32)
[2016-08-28] MEDS: MIRTAZAPINE 15 MG TABLET PEG SCH (08:32)
[2016-08-28] MEDS: POTASSIUM CHLORIDE 10% 40 MEQ/30 ML LIQUID UDCUP PEG SCH (08:32)
[2016-08-28] MEDS: MetFORMIN HCL 850 MG TABLET PEG SCH (08:32)
[2016-08-28] MEDS: DOCUSATE SODIUM 100 MG CAPSULE PEG SCH (08:32)
[2016-08-28] MEDS: PRAVASTATIN SODIUM 40 MG TABLET PEG SCH (08:32)
[2016-08-28] MEDS: ENOXAPARIN SODIUM 60 MG/0.6 ML PF SYRINGE SQ SCH (08:33)
[2016-08-28] MEDS: CHOLECALCIFEROL (VIT D3) 2,000 UNITS TABLET PEG SCH (08:33)
[2016-08-28] MEDS: LANSOPRAZOLE 30 MG SOLUBLE TABLET PEG SCH (08:33)
[2016-08-28] MEDS: MULTIVITAMINS WITH MINERALS, THERAPEUTIC 15 ML UDCUP PEG SCH (08:33)
[2016-08-28 08:48] VITALS: BP 113/54
[2016-08-28 11:24] VITALS: BP 133/65
[2016-08-28] MEDS: INSULIN ASPART 100 UNITS/ML SQ PRN (11:57)
[2016-08-28 12:17] LABS: GLUCOSE COMMENT 1 Received Meds; GLUCOSE,POINT OF CARE 141 MG/DL (70-110)
[2016-08-28 12:17] LABS: GLUCOSE,POINT OF CARE 143 MG/DL (70-110)
[2016-08-28 15:47] VITALS: BP 127/61
== END 2016-08-28 17:30 | DRG 871 ==
LOC: EMS 22:01 → 5S 23:00 → 6N 08-18 19:00
PROVIDERS: ADMIT Internal Medicine; ATTEND Internal Medicine
PROC: 5A09457 Assistance with Respiratory Ventilation, 24-96 Consecutive Hours, Continuous Positive Airway Pressure (ICD-10-PCS; principal; 2016-08-16)
DX: A41.9 Sepsis, unspecified organism (principal); G93.40 Encephalopathy, unspecified; J18.9 Pneumonia, unspecified organism; J96.01 Acute respiratory failure with hypoxia; L89.154 Pressure ulcer of sacral region, stage 4; L89.893 Pressure ulcer of other site, stage 3; N39.0 Urinary tract infection, site not specified; Z66 Do not resuscitate; D64.9 Anemia, unspecified; E03.9 Hypothyroidism, unspecified; E11.621 Type 2 diabetes mellitus with foot ulcer; E78.2 Mixed hyperlipidemia; E87.5 Hyperkalemia; F03.90 Unspecified dementia, unspecified severity, without behavioral disturbance, psychotic disturbance, mood disturbance, and anxiety; I11.0 Hypertensive heart disease with heart failure; I50.9 Heart failure, unspecified; I48.91 Unspecified atrial fibrillation; K59.00 Constipation, unspecified; K21.0 Gastro-esophageal reflux disease with esophagitis; R13.13 Dysphagia, pharyngeal phase; B96.89 Other specified bacterial agents as the cause of diseases classified elsewhere; Z28.21 Immunization not carried out because of patient refusal; Z79.4 Long term (current) use of insulin; Z87.01 Personal history of pneumonia (recurrent); Z88.8 Allergy status to other drugs, medicaments and biological substances; Z93.1 Gastrostomy status
CPT/HCPCS: 71250; 82962; 83605; 85007; 85651; 86140; 87040; 87070; 87081; 87086; 87106; 87205; 87449; 87899; 90471; 92526; 92610; 93005; 94644; 94660; 96365; 96367; 99285; J1650; J2543; J3370; J7040; J7050; J7060